=== PATIENT | male | born 1955 | race Caucasian/White ===

== ENCOUNTER 2016-11-10 18:13 | Inpatient (IN) | payer BC, MEDICAID ==
[~2016-11-10] VITALS: Ht 248.9 cm; Wt 134.7 kg
[2016-11-10] MEDS ORDERED: [UNRECOGNIZED DRUG - REMARK] (18:24)
[2016-11-10] MEDS ORDERED: [UNRECOGNIZED DRUG - REMARK] (18:24)
[2016-11-10] MEDS ORDERED: [UNRECOGNIZED DRUG - REMARK] (18:24)
[2016-11-10] MEDS ORDERED: [UNRECOGNIZED DRUG - REMARK] (18:25)
[2016-11-10] MEDS ORDERED: [UNRECOGNIZED DRUG - REMARK] (18:25)
[2016-11-10] MEDS ORDERED: [UNRECOGNIZED DRUG - REMARK] (18:25)
[2016-11-10] MEDS ORDERED: [UNRECOGNIZED DRUG - REMARK] (18:25)
[2016-11-10 18:56] LABS: BASOPHILS % (AUTO) 0.7 % (0.0-2.0); EOSINOPHILS # (AUTO) 0.2 K/uL (0.0-0.7); EOSINOPHILS % (AUTO) 2.8 % (0.0-7.0); HEMATOCRIT 40.4 % (40.0-50.0); HEMOGLOBIN 13.6 g/dL (14.0-18.0); LYMPHOCYTES # (AUTO) 1.4 K/uL (0.8-4.8); LYMPHOCYTES % (AUTO) 22.6 % (20.5-51.5); MEAN CORPUSCULAR HEMOGLOBIN 27.3 uug (27.0-31.0); MEAN CORPUSCULAR HGB CONC 34 g/dL (32.0-37.0); MEAN CORPUSCULAR VOLUME 80.9 fL (82.0-92.0); MONOCYTES # (AUTO) 0.4 K/uL (0.1-1.30); MONOCYTES % (AUTO) 6.9 % (0.0-11.0); PLATELET COUNT (AUTO) 239 K/uL (150-450); RED CELL DISTRIBUTION WIDTH 13.1 % (11.5-14.5)
[2016-11-10 19:08] LABS: CALCIUM 9.4 mg/dL (8.5-10.1); CREATININE 0.9 mg/dL (0.6-1.3); POTASSIUM 3.7 mmol/L (3.5-5.1)
[2016-11-10] MEDS ORDERED: ASPIRIN 325 MG TABLET PO ONE (20:00)
[2016-11-10] MEDS ORDERED: NITROGLYCERIN OINT 1 GM PACKET TP ONE ×2 (20:00→20:28)
--- NOTE | 2016-11-10 20:10 | NUR ---
On-call portfolio consultant, Dr. Moya, speaking with ERMMelodie.
[2016-11-10] MEDS ORDERED: ENOXAPARIN SODIUM 100 MG/ML DISP.SYRIN SQ ONE (20:15)
[2016-11-10] MEDS ORDERED: ENOXAPARIN SODIUM 80 MG/0.8 ML DISP.SYRIN SQ ONE (20:28)
[2016-11-10] MEDS ORDERED: ASPIRIN 325 MG TABLET ONE (20:28)
[2016-11-10] MEDS ORDERED: ENOXAPARIN SODIUM 40 MG/0.4 ML DISP.SYRIN SQ ONE (20:28)
--- NOTE | 2016-11-10 21:04 | NUR ---
Pt. admitted to [facility], under care of Dr. Valdez Belongs List completed
[2016-11-10 21:40] VITALS: BP 143/91
--- NOTE | 2016-11-10 21:40 | NUR ---
ADMITTED FROM ER VIA GURNEY, AWAKE, ALERT & ORIENTED X3 W/ PLEASANT PERSONALITY.DENIES CHEST PAIN. HEP LOCK INTACT & PATENT ON R HAND.C-SCOPE SR NO ECTOPY.ON RM AIR W/ O2 SAT OF 98%. NOT IN ANY DISTRESS.
[2016-11-10 22:00] VITALS: BP 123/73
[2016-11-10 22:15] VITALS: BP 139/104
[2016-11-10] MEDS ORDERED: METOPROLOL TARTRATE 25 MG TABLET PO SCH (22:15)
[2016-11-10] MEDS ORDERED: ONDANSETRON 4 MG/2 ML VIAL IV PRN (22:15)
[2016-11-10] MEDS ORDERED: MORPHINE SULFATE 2 MG/1 ML DISP.SYRIN IV PRN (22:15)
[2016-11-10] MEDS ORDERED: DEXTROSE 50% 50 ML DISP.SYRIN IV PRN (22:15)
[2016-11-10] MEDS ORDERED: ZOLPIDEM 5 MG TABLET PO PRN (22:15)
[2016-11-10] MEDS ORDERED: NITROGLYCERIN 0.3 MG/TAB BOTTLE SL PRN (22:15)
[2016-11-10] MEDS ORDERED: ACETAMINOPHEN 325 MG TABLET PO PRN (22:15)
[2016-11-10] MEDS ORDERED: MAGNESIUM HYDROXIDE 30 ML LIQUID UDC PO PRN (22:15)
[2016-11-10] MEDS ORDERED: HYDROCODONE/APAP 5-325MG TABLET PO PRN (22:15)
[2016-11-10 22:30] VITALS: BP 143/107
[2016-11-10] MEDS: BENAZEPRIL HCL 5 MG TABLET PO SCH (22:35)
[2016-11-10] MEDS ORDERED: BENAZEPRIL HCL 5 MG TABLET ONE (22:41)
[2016-11-10 22:45] VITALS: BP 141/102
--- NOTE | 2016-11-10 22:45 | NUR ---
ACCUCHECK DONE BS-139, COVERED W/ REGULAR INSULIN 2 UNITS SUBCU ORDERED.
[2016-11-10] MEDS: INSULIN REGULAR, HUMAN 300 UNIT/3 ML VIAL SQ PRN (22:59)
[2016-11-10 23:00] VITALS: BP 143/98
--- NOTE | 2016-11-10 23:00 | NUR ---
DR CADENA WAS HERE & SEEN PT. AWARE OF TROPONIN RESULT.
[2016-11-10] MEDS ORDERED: ZOLPIDEM 5 MG TABLET ONE (23:45)
--- NOTE | 2016-11-10 23:55 | NUR ---
PT REQUESTED A SLEEPING PILL, AMBIEN 5MG GIVEN PO.
[2016-11-11] VITALS (10 sets, daily range): BP systolic 124–151; BP diastolic 69–78
--- NOTE | 2016-11-11 00:15 | NUR ---
DR CUEVAS WAS HERE & SEEN PT.
--- NOTE | 2016-11-11 02:00 | NUR ---
SLEEPING WELL. V/S STABLE. NO CHEST PAIN.
--- NOTE | 2016-11-11 04:40 | NUR ---
LAB DRAWN, PT BACK TO SLEEP. NOT IN ANY DISTRESS.
[2016-11-11 05:04] LABS: BASOPHILS % (AUTO) 0.5 % (0.0-2.0); EOSINOPHILS # (AUTO) 0.2 K/uL (0.0-0.7); EOSINOPHILS % (AUTO) 3.2 % (0.0-7.0); HEMATOCRIT 37.9 % (40.0-50.0); HEMOGLOBIN 12.8 g/dL (14.0-18.0); LYMPHOCYTES # (AUTO) 1.5 K/uL (0.8-4.8); LYMPHOCYTES % (AUTO) 27.4 % (20.5-51.5); MEAN CORPUSCULAR HEMOGLOBIN 27.4 uug (27.0-31.0); MEAN CORPUSCULAR HGB CONC 34 g/dL (32.0-37.0); MEAN CORPUSCULAR VOLUME 80.9 fL (82.0-92.0); MONOCYTES # (AUTO) 0.5 K/uL (0.1-1.30); MONOCYTES % (AUTO) 8.5 % (0.0-11.0); NEUTROPHILS # (AUTO) 3.3 K/uL (1.8-8.9); NEUTROPHILS % (AUTO) 60.4 % (38.5-71.5); PLATELET COUNT (AUTO) 215 K/uL (150-450); RED BLOOD CELL COUNT(AUTO) 4.69 MIL/uL (4.70-6.10); RED CELL DISTRIBUTION WIDTH 13.7 % (11.5-14.5); WHITE BLOOD COUNT (AUTO) 5.5 K/uL (4.0-11.2)
[2016-11-11 05:16] LABS: ALBUMIN 3.5 g/dL (3.4-5.0); BILIRUBIN,TOTAL 0.4 mg/dL (0.2-1.0); CALCIUM 8.5 mg/dL (8.5-10.1); CREATININE 0.9 mg/dL (0.6-1.3); MAGNESIUM 1.9 mg/dL (1.8-2.4); PHOSPHOROUS 3.4 mg/dL (2.5-4.9); POTASSIUM 3.4 mmol/L (3.5-5.1); TOTAL PROTEIN, SERUM 6.6 g/dL (6.4-8.2)
[2016-11-11 05:19] LABS: THYROID STIMULATING HORMONE 3.633 mIU/mL (0.358-3.740)
--- NOTE | 2016-11-11 06:10 | NUR ---
REMAINS ASLEEP. V/S STABLE.
[2016-11-11] MEDS ORDERED: PANTOPRAZOLE SODIUM 40 MG TABLET.DR PO SCH (07:00)
[2016-11-11] MEDS: CARVEDILOL 12.5 MG TABLET PO SCH ×2 (07:57→18:00)
[2016-11-11] MEDS: BENAZEPRIL HCL 5 MG TABLET PO SCH (07:57)
[2016-11-11] MEDS: BLOOD SUGAR DIAGNOSTIC 1 EACH STRIP VI SCH ×3 (08:10→16:26)
[2016-11-11] MEDS: INSULIN REGULAR, HUMAN 300 UNIT/3 ML VIAL SQ PRN ×3 (08:12→16:27)
[2016-11-11] MEDS ORDERED: POTASSIUM CHLORIDE 20 MEQ TAB.PRT.SR PO ONE (08:15)
[2016-11-11] MEDS ORDERED: ATORVASTATIN 40 MG TABLET PO SCH ×2 (08:15→21:00)
[2016-11-11] MEDS ORDERED: CLOPIDOGREL 75 MG TABLET PO SCH (09:00)
[2016-11-11] MEDS ORDERED: ASPIRIN 81 MG TAB.CHEW PO SCH (09:00)
--- NOTE | 2016-11-11 15:03 | NUR ---
Had been in contact with the patient's CM from [facility], Sobeida Chicas [ [phone]; ] and [facility] [[phone]] about transfer for a higher level of care. Informed them that the patient is requesting to be transferred to [facility] because he has all of his cardiology records there. They stated that [facility] is not in their network and that they will try to transfer him to [facility]. Spoke to both the patient and his , Elizabeth [ ], about the transfer and they did not agree and decided to leave AMA. Informed them of the risks of leaving AMA but they still insisted. Updated Dr. Valdez, Dr. Iraheta and his RN, uBck, of the patient's decision as well as [facility] CM.
--- NOTE | 2016-11-11 15:25 | NUR ---
Pt requesting to leave against medical advice and stated that he wanted to go to another hospital right now. MD made aware and pt educated about the health risks with case management at the bedside. Pt verbalized understanding.
--- NOTE | 2016-11-11 16:50 | NUR ---
Pt left the floor with and son against medical advice. Offered pt wheelchair to go down, but pt refused. Exitcare and all medical laboratory/imaging work provided to the pt and . Education provided and discussed with the pt. Pt and verbalized understanding. PIV removed. Belongings sheet reviewed and brought home with the pt. Pt stable and nad noted upon leaving the floor.
[2016-11-11] MEDS ORDERED: DOCUSATE SODIUM 250 MG CAPSULE PO SCH (21:00)
== END 2016-11-11 16:50 | disposition left against medical advice (07) | DRG 190 ==
LOC: EDSEX 18:18 → ER 18:18 → CCU 21:12
PROVIDERS: ADMIT Internal Medicine; ATTEND Internal Medicine
DX: I21.4 Non-ST elevation (NSTEMI) myocardial infarction (principal); E88.81 Metabolic syndrome and other insulin resistance; E11.9 Type 2 diabetes mellitus without complications; J44.9 Chronic obstructive pulmonary disease, unspecified; I10 Essential (primary) hypertension; D50.9 Iron deficiency anemia, unspecified; E03.9 Hypothyroidism, unspecified; I25.10 Atherosclerotic heart disease of native coronary artery without angina pectoris; E78.5 Hyperlipidemia, unspecified; E66.9 Obesity, unspecified; Z98.61 Coronary angioplasty status; Z87.891 Personal history of nicotine dependence; Z68.21 Body mass index [BMI] 21.0-21.9, adult
CPT/HCPCS: 36415; 70030-TC; 71010; 72125; 83550; 83735; 84100; 84443; 85025; 93005; 93307; A4663; J1650; J1815